=== PATIENT | female | born 1950 | race Caucasian/White ===

== ENCOUNTER 2018-03-06 13:31 | Outpatient (CLI) | payer BC | END 2018-03-06 13:32 | disposition home or self-care (01) | LOC: BICMAMMO 13:31 | PROVIDERS: ATTEND Family Medicine | DX: Z12.31 Encounter for screening mammogram for malignant neoplasm of breast (principal) | CPT/HCPCS: 77063; 77067 ==

== ENCOUNTER 2022-07-09 11:29 | Outpatient (CLI) | payer MEDICARE ==
[~2022-07-09 11:29] MED LIST: Iopamidol 370 76% 100 ML VIAL ONE
== END 2022-07-09 11:30 | disposition home or self-care (01) ==
LOC: CT 11:29
PROVIDERS: ATTEND Internal Medicine Hematology & Oncology
DX: I26.99 Other pulmonary embolism without acute cor pulmonale (principal); C18.2 Malignant neoplasm of ascending colon; D50.8 Other iron deficiency anemias
CPT/HCPCS: 71275; 82565; Q9967

== ENCOUNTER 2022-12-26 09:59 | Outpatient (CLI) | payer MEDICARE, OTHER | END 2022-12-26 10:00 | disposition home or self-care (01) | LOC: DTY/OP 09:59 | PROVIDERS: ATTEND Surgery | DX: E66.01 Morbid (severe) obesity due to excess calories (principal) | CPT/HCPCS: 97802 ==

== ENCOUNTER 2023-02-19 14:00 | Inpatient (IN) | payer MEDICARE ==
[2023-03-05] MEDS ORDERED: Heparin 5,000 UNITS/ML VIAL ONE (06:21)
[2023-03-05] MEDS ORDERED: EPINEPHrine 1 MG/ML AMP ONE (06:37)
[2023-03-05] MEDS ORDERED: Bupivacaine 0.25% HCL 30 ML VIAL ONE (06:37)
[2023-03-05] MEDS ORDERED: Propofol 500 MG/50 ML VIAL ONE (06:56)
[2023-03-05] MEDS ORDERED: fentaNYL PF 100 MCG/2 ML SYRINGE ONE (06:56)
[2023-03-05] MEDS ORDERED: SUGAMMADEX SODIUM 200 MG/2 ML VIAL ONE (06:56)
[2023-03-05] MEDS ORDERED: Ketamine 50 MG/ML (10ML VIAL) ONE (06:56)
[2023-03-05] MEDS ORDERED: CEFAZOLIN 2 GM VIAL ONE (07:29)
[2023-03-05] MEDS ORDERED: Sodium Chloride 0.9% 100 ML ONE (07:29)
[2023-03-05] MEDS ORDERED: Lidocaine 1% PF 5 ML VIAL ONE (07:44)
[2023-03-05] MEDS ORDERED: Rocuronium Bromide 10 MG/ML (10ML VIAL) ONE (07:44)
[2023-03-05] MEDS ORDERED: Dexamethasone 20 MG/5 ML VIAL ONE (07:44)
[2023-03-05] MEDS ORDERED: Ondansetron PF 4 MG/2 ML Vial ONE ×2 (07:44→14:04)
[2023-03-05] MEDS ORDERED: Glycopyrrolate 0.2 MG/ML 5 ML SYRINGE ONE (07:44)
[2023-03-05] MEDS ORDERED: PROPOFOL 200 MG/20 ML VIAL ONE (07:44)
[2023-03-05] MEDS ORDERED: NEOSTIGMINE 3 MG/3 ML SYR 3 MG/3 ML SYRINGE ONE (07:44)
[2023-03-05] MEDS ORDERED: Promethazine HCl 25 MG/ML VIAL IM PRN ×3 (08:21→09:13)
[2023-03-05] MEDS ORDERED: diphenhydrAMINE 50 MG/ML VIAL IM PRN (08:21)
[2023-03-05] MEDS ORDERED: diphenhydrAMINE 50 MG/ML VIAL IVP PRN ×2 (08:21→09:13)
[2023-03-05] MEDS ORDERED: Naloxone HCl 0.4 mg/ml Vial IV PRN (08:21)
[2023-03-05] MEDS ORDERED: Ondansetron HCl/PF 4 MG/2 ML Vial IVP PRN (08:21)
[2023-03-05] MEDS ORDERED: diphenhydrAMINE 25 MG CAP PO PRN (08:21)
[2023-03-05] MEDS ORDERED: FENTANYL 500 MCG/10 ML VIAL 2,000 MCG in Sodium Chloride 0.9% 60 ML IV PRN (08:21)
[2023-03-05] MEDS ORDERED: Communication Order-Pharmacy FS SCH (08:30)
[2023-03-05] MEDS ORDERED: Ondansetron PF 4 MG/2 ML Vial IVP PRN (09:13)
[2023-03-05] MEDS ORDERED: Glucagon 1 MG/ML KIT IM PRN (09:13)
[2023-03-05] MEDS ORDERED: Dextrose 5% in Water 1,000 ML IV PRN (09:13)
[2023-03-05] MEDS ORDERED: Dextrose 50% Abboject 50 ML SYRINGE SLOW IVP PRN (09:13)
[2023-03-05] MEDS ORDERED: Hydrocodone-Acetamin 15 ML UDCUP PO PRN (09:13)
[2023-03-05] MEDS ORDERED: Losartan/Hydrochlorothiazide 100 mg/25 mg Tablet PO SCH (09:13)
[2023-03-05] MEDS ORDERED: Ipratropium/Albuterol 3 ML NEB NEB PRN (09:13)
[2023-03-05] MEDS ORDERED: Promethazine HCl 25 MG/ML VIAL ONE (09:24)
[2023-03-05] MEDS ORDERED: fentaNYL 50 mcg/mL 1 mL Vial ONE (09:27)
[2023-03-05] MEDS ORDERED: D5 1/2 NS w/20 mEq KCL 1,000 ML ONE (10:54)
[2023-03-05] MEDS: D5 1/2 NS w/20 mEq KCL 1,000 ML IV SCH ×2 (11:00→20:56)
[2023-03-05] MEDS ORDERED: hydrALAZINE 20 MG/ML VIAL ONE ×2 (11:01→14:44)
[2023-03-05] MEDS: hydrALAZINE 20 MG/ML VIAL SLOW IVP PRN (11:01)
[2023-03-05] MEDS: Ondansetron PF 4 MG/2 ML Vial IVP PRN ×2 (14:05→18:15)
[2023-03-05 18:01] VITALS: BMI 36.3
[2023-03-05] MEDS: hydrALAZINE 25 MG TAB PO SCH ×2 (20:40→20:55)
[2023-03-05] MEDS: Thyroid 60 MG TAB PO SCH (20:41)
[2023-03-05] MEDS: Pantoprazole 40 MG VIAL IVP SCH (20:41)
[2023-03-06] MEDS: D5 1/2 NS w/20 mEq KCL 1,000 ML IV SCH ×2 (02:15→11:40)
[2023-03-06 06:36] LABS: Calcium 8.7 mg/dL (7.8-10.44); Chloride 103 mmol/L (98-107); Potassium 4.6 mmol/L (3.5-5.1); Sodium 133 mmol/L (136-145)
[2023-03-06 06:37] LABS: Glucose 121 mg/dL (80-115)
[2023-03-06 06:38] LABS: Anion Gap 19 mmol/L (10-20); Carbon Dioxide 16 mmol/L (23-31)
[2023-03-06 06:40] LABS: Calc. Creatinine Clearance 104 mL/min (70-130); Estimated GFR 87
[2023-03-06 06:41] LABS: BUN (Urea Nitrogen) 9 mg/dL (9.8-20.1)
[2023-03-06 06:46] LABS: Hematocrit 43.2 % (36.0-47.0); Hemoglobin 13.1 g/dL (12.0-16.0); Mean Corpuscular HGB CONC 30.3 g/dL (32.0-36.0); Mean Corpuscular Hemoglobin 31.8 pg (27.0-31.0); Mean Corpuscular Volume 104.9 fl (78.0-98.0); Mean Platelet Volume 10.5 fL (7.4-10.4); Platelet Count 239 10x3/uL (130-400); RBC Distribution Width 13.6 % (11.5-14.5); Red Blood Cell (RBC) Count 4.12 mill/uL (4.20-5.40); White Blood Cell (WBC) Count 22.3 10x3/uL (4.8-10.8)
[2023-03-06 07:03] LABS: Delete Auto Diff?? YES; Manual Diff?? YES
[2023-03-06 07:37] VITALS: TEMP 98.2
[2023-03-06 08:11] LABS: Band 10 % (5-11); CellaVision Operator ID LAB.GE; Lymphocytes 4 % (21-51); Macrocytosis SLIGHT = 6-15 cells HPF (0-5); Neutrophil 86 % (42-75); Nucleated RBC (Manual Ct) 2 % (0); Platelet Adequacy Comment Platelets Normal; Polychromasia SLIGHT = 2-3 cells HPF (0-2); Total Cell Count 103
[2023-03-06] MEDS: hydrALAZINE 25 MG TAB PO SCH (10:28)
[2023-03-06] MEDS: Thyroid 60 MG TAB PO SCH (10:28)
[2023-03-06] MEDS: Pantoprazole 40 MG VIAL IVP SCH (10:29)
[2023-03-06] MEDS: Losartan/Hydrochlorothiazide 100 mg/25 mg Tablet PO SCH ×2 (10:29→11:40)
[2023-03-06] MEDS ORDERED: Hydrocodone-Acetamin 15 ML UDCUP PO PRN (11:27)
[2023-03-06] MEDS: Ondansetron PF 4 MG/2 ML Vial IVP PRN (11:29)
[2023-03-06] MEDS: hydrALAZINE 20 MG/ML VIAL SLOW IVP PRN (11:33)
[2023-03-06] MEDS ORDERED: Losartan 25 MG TAB PO SCH (12:45)
[2023-03-06 13:06] VITALS: BP 122/59
[2023-03-07] MEDS ORDERED: Losartan 25 MG TAB PO SCH (09:00)
== END 2023-03-06 14:44 | disposition home or self-care (01) | DRG 621 ==
LOC: SURG A 03-05 06:03
PROVIDERS: ADMIT Surgery; ATTEND Surgery
PROC: 0DB64Z3 Excision of Stomach, Percutaneous Endoscopic Approach, Vertical (ICD-10-PCS; principal; 2023-03-05)
PROC: 8E0W4CZ Robotic Assisted Procedure of Trunk Region, Percutaneous Endoscopic Approach (ICD-10-PCS; 2023-03-05)
DX: E66.01 Morbid (severe) obesity due to excess calories (principal); I10 Essential (primary) hypertension; Z68.36 Body mass index [BMI] 36.0-36.9, adult; Z90.710 Acquired absence of both cervix and uterus; Z98.890 Other specified postprocedural states; Z88.8 Allergy status to other drugs, medicaments and biological substances
CPT/HCPCS: 36415; 80048; 85025; 88307; C9113; J0171; J0360; J1100; J1644; J1650; J2405; J2550; J2704; J3010; J3480; J3490; S0020

== ENCOUNTER 2023-02-19 14:11 | Outpatient (CLI) | payer MEDICARE ==
[2023-02-19 15:48] LABS: #Basophils 0.1 10x3/uL (0.0-0.2); #Eosinphils 0.3 10x3/uL (0.0-0.5); #Monocytes 0.8 10x3/uL (0.0-1.1); #Neutrophils 5.2 10x3/uL (1.5-8.4); %Basophils 0.6 % (0.0-2.0); %Eosinophils 3.1 % (0.0-6.0); %Lymphocytes 33.7 % (18.0-47.0); %Monocytes 8.4 % (0.0-10.0); %Neutrophils 53.9 % (40.0-75.0); Hemoglobin 15.4 g/dL (12.0-15.5); Mean Corpuscular HGB CONC 33.5 g/dL (32.0-36.0); Mean Corpuscular Hemoglobin 31.6 pg (27.0-33.0); Mean Corpuscular Volume 94.3 fl (81.6-98.3); Mean Platelet Volume 9.7 fl (7.4-10.4); Platelet Count 345 10x3/uL (150-450); RBC Distribution Width 13.4 % (11.5-14.5); Red Blood Cell (RBC) Count 4.88 10x6/uL (3.90-5.03); White Blood Cell (WBC) Count 9.7 10x3/uL (3.5-10.5)
[2023-02-19 16:15] LABS: ALT (SGPT) 48 U/L (8-55); AST (SGOT) 47 U/L (5-34); Albumin 4.6 g/dL (3.4-4.8); Alkaline Phosphatase 63 U/L (40-110); Anion Gap 15 mmol/L (10-20); BUN (Urea Nitrogen) 29 mg/dL (9.8-20.1); Bilirubin, Total 0.3 mg/dL (0.2-1.2); Calc. Creatinine Clearance 0 mL/min (70-130); Calcium 10.2 mg/dL (7.8-10.44); Carbon Dioxide 26 mmol/L (23-31); Chloride 99 mmol/L (98-107); Estimated GFR 75; Globulin 2.6 g/dL (2.4-3.5); Glucose 87 mg/dL (80-115); Potassium 3.9 mmol/L (3.5-5.1); Protein, Total 7.2 g/dL (5.8-8.1); Sodium 136 mmol/L (136-145)
[2023-02-19 20:02] LABS: Hemoglobin A1c 5.1 % (4.0-6.0)
== END 2023-02-19 14:12 | disposition home or self-care (01) ==
LOC: LABBT 14:11
PROVIDERS: ATTEND Surgery
DX: Z01.818 Encounter for other preprocedural examination (principal); E66.01 Morbid (severe) obesity due to excess calories
CPT/HCPCS: 71046; 80053; 83036; 85025; 93005; 93010

== ENCOUNTER 2023-05-10 13:30 | Inpatient (IN) | payer MEDICARE ==
[2023-05-10 15:00] LABS: Anion Gap 18 mmol/L (10-20); BUN (Urea Nitrogen) 13 mg/dL (9.8-20.1); Calc. Creatinine Clearance 0 mL/min (70-130); Calcium 9.6 mg/dL (7.8-10.44); Carbon Dioxide 23 mmol/L (23-31); Chloride 101 mmol/L (98-107); Estimated GFR 76; Glucose 93 mg/dL (80-115); Potassium 4.1 mmol/L (3.5-5.1); Sodium 138 mmol/L (136-145)
[2023-05-10 15:03] LABS: Hematocrit 45.5 % (34.9-44.5); Hemoglobin 15.4 g/dL (12.0-15.5); Mean Corpuscular HGB CONC 33.8 g/dL (32.0-36.0); Mean Corpuscular Hemoglobin 30.9 pg (27.0-33.0); Mean Corpuscular Volume 91.2 fl (81.6-98.3); Platelet Count 245 10x3/uL (150-450); Red Blood Cell (RBC) Count 4.99 10x6/uL (3.90-5.03); White Blood Cell (WBC) Count 8.5 10x3/uL (3.5-10.5)
[2023-05-13] MEDS ORDERED: Rocuronium Bromide 10 MG/ML (10ML VIAL) ONE ×2 (06:15→06:26)
[2023-05-13] MEDS ORDERED: Ondansetron PF 4 MG/2 ML Vial ONE ×2 (06:15→08:50)
[2023-05-13] MEDS ORDERED: PROPOFOL 200 MG/20 ML VIAL ONE (06:15)
[2023-05-13] MEDS ORDERED: ePHEDrine Sulfate 50 MG/10 ML VIAL ONE ×2 (06:15→08:27)
[2023-05-13] MEDS ORDERED: Lidocaine 1.5% w/Epi 1:200K 30 ML VIAL (Epid Use) ONE (06:15)
[2023-05-13] MEDS ORDERED: Labetalol HCl 100 MG/20 ML VIAL ONE ×2 (06:15→08:48)
[2023-05-13] MEDS ORDERED: Dexamethasone 20 MG/5 ML VIAL ONE ×2 (06:15→08:25)
[2023-05-13] MEDS ORDERED: diphenhydrAMINE 50 MG/ML VIAL ONE ×2 (06:15→08:52)
[2023-05-13] MEDS ORDERED: PROPOFOL 20 ML ONE (06:26)
[2023-05-13] MEDS ORDERED: fentaNYL 50 mcg/mL 1 mL Vial ONE ×6 (06:29→12:10)
[2023-05-13] MEDS ORDERED: Midazolam HCl 2 mg/2 ml Vial ONE (06:29)
[2023-05-13] MEDS ORDERED: CEFAZOLIN 2 GM VIAL ONE (07:22)
[2023-05-13] MEDS ORDERED: Sodium Chloride 0.9% 100 ML ONE (07:23)
[2023-05-13] MEDS ORDERED: fentaNYL PF 100 MCG/2 ML SYRINGE ONE (07:39)
[2023-05-13] MEDS ORDERED: HYDROcodone/Acetaminophen 5/325 mg Tablet PO PRN ×2 (07:45)
[2023-05-13] MEDS ORDERED: Promethazine HCl 25 MG SUPP PR PRN (07:45)
[2023-05-13] MEDS ORDERED: Moisturizing Cream (Eucerin) 113 GM JAR TOP PRN (07:45)
[2023-05-13] MEDS ORDERED: Naloxone HCl 0.4 mg/ml Vial IV PRN (07:45)
[2023-05-13] MEDS ORDERED: diphenhydrAMINE 25 MG CAP PO PRN (07:45)
[2023-05-13] MEDS ORDERED: traMADol HCl 50 MG TAB PO PRN ×2 (07:45)
[2023-05-13] MEDS ORDERED: diphenhydrAMINE 50 MG/ML VIAL IVP PRN (07:45)
[2023-05-13] MEDS ORDERED: Naloxone HCl 0.4 mg/ml Vial IVP PRN (07:45)
[2023-05-13] MEDS ORDERED: Promethazine HCl 25 MG/ML VIAL IM PRN (07:45)
[2023-05-13] MEDS ORDERED: Bupivacaine 0.25% 10 ML VIAL EPIDURAL PRN (07:45)
[2023-05-13] MEDS ORDERED: diphenhydrAMINE 50 MG/ML VIAL IM PRN (07:45)
[2023-05-13] MEDS ORDERED: Ropivacaine 0.2% HCl/PF 20 ML ONE (07:55)
[2023-05-13] MEDS ORDERED: SUGAMMADEX SODIUM 200 MG/2 ML VIAL ONE (08:59)
[2023-05-13] MEDS ORDERED: hydrALAZINE 20 MG/ML VIAL SLOW IVP PRN (09:24)
[2023-05-13] MEDS ORDERED: Ondansetron HCl/PF 4 MG/2 ML Vial IVP PRN (09:37)
[2023-05-13 12:47] VITALS: BMI 32.0
[2023-05-13] MEDS: CEFAZOLIN 2 GM in Sodium Chloride 0.9% 100 ML IVPB SCH ×2 (15:08→22:58)
[2023-05-13] MEDS: Sodium Chloride 0.9% 1,000 ML IV SCH ×2 (17:23→19:33)
[2023-05-13] MEDS: Ketorolac Tromethamine 30 MG/ML VIAL IVP SCH ×3 (17:24→22:59)
[2023-05-13] MEDS ORDERED: FLU VACC QS2023(65UP)/MF59C/PF 60 MCG/0.5 ML SYRINGE IM ONE (18:00)
[2023-05-13] MEDS: Ondansetron PF 4 MG/2 ML Vial IVP PRN (19:30)
[2023-05-13] MEDS: Atorvastatin Calcium 20 MG TAB PO SCH (19:33)
[2023-05-13] MEDS: Progesterone,Micronized 100 MG CAP PO SCH (19:36)
[2023-05-14] MEDS: Fentanyl/Bupivacaine 100 ML EPIDURAL SCH ×2 (02:33→19:29)
[2023-05-14 05:00] LABS: #Monocytes 0.9 thou/uL (0.11-0.59); #Neutrophils 12.9 thou/uL (1.40-6.50); %Basophils 0.1 % (0.0-1.0); %Monocytes 5.6 % (0.0-10.0); %Neutrophils 84.8 % (42.0-75.0); Hematocrit 38.5 % (36.0-47.0); Mean Corpuscular HGB CONC 33.8 g/dL (32.0-36.0); Mean Corpuscular Hemoglobin 31.2 pg (27.0-31.0); Mean Corpuscular Volume 92.3 fl (78.0-98.0); Mean Platelet Volume 10.5 fL (7.4-10.4); Platelet Count 185 10x3/uL (130-400); RBC Distribution Width 15.3 % (11.5-14.5); Red Blood Cell (RBC) Count 4.17 mill/uL (4.20-5.40); White Blood Cell (WBC) Count 15.2 10x3/uL (4.8-10.8)
[2023-05-14 05:21] LABS: Anion Gap 12 mmol/L (10-20); BUN (Urea Nitrogen) 11 mg/dL (9.8-20.1); Calc. Creatinine Clearance 81 mL/min (70-130); Calcium 7.9 mg/dL (7.8-10.44); Carbon Dioxide 26 mmol/L (23-31); Chloride 99 mmol/L (98-107); Estimated GFR 75; Glucose 137 mg/dL (80-115); Potassium 3.7 mmol/L (3.5-5.1); Sodium 133 mmol/L (136-145)
[2023-05-14] MEDS: Ketorolac Tromethamine 30 MG/ML VIAL IVP SCH ×3 (06:02→18:40)
[2023-05-14] MEDS: CEFAZOLIN 2 GM in Sodium Chloride 0.9% 100 ML IVPB SCH (06:02)
[2023-05-14] MEDS: Sodium Chloride 0.9% 1,000 ML IV SCH ×2 (06:03→15:30)
[2023-05-14] MEDS ORDERED: Milk Of Magnesia 30 ML UDCUP PO PRN (08:12)
[2023-05-14] MEDS ORDERED: Mineral Oil ENEMA PR PRN (08:12)
[2023-05-14] MEDS ORDERED: Bisacodyl 10 MG SUPP PR PRN (08:12)
[2023-05-14] MEDS ORDERED: Thyroid 60 MG TAB PO SCH (09:00)
[2023-05-14] MEDS ORDERED: TURMERIC ROOT EXTRACT 500 MG PO SCH (09:00)
[2023-05-14] MEDS: CO Q-10 CAPSULE 100 MG PO SCH (09:56)
[2023-05-14] MEDS: Calcium Carbonate 500 MG TAB PO SCH (09:57)
[2023-05-14] MEDS: DULoxetine 30 MG CAP PO SCH (09:57)
[2023-05-14] MEDS: Multivitamin W/ Minerals 1 TAB PO SCH (09:57)
[2023-05-14] MEDS: Ondansetron PF 4 MG/2 ML Vial IVP PRN ×2 (11:51→18:36)
[2023-05-14] MEDS: Zolpidem Tartrate 5 MG TAB PO PRN (21:16)
[2023-05-14] MEDS: Atorvastatin Calcium 20 MG TAB PO SCH (21:16)
[2023-05-14] MEDS: Progesterone,Micronized 100 MG CAP PO SCH (21:33)
[2023-05-15] MEDS: Sodium Chloride 0.9% 1,000 ML IV SCH ×3 (01:30→22:41)
[2023-05-15] MEDS: Ketorolac Tromethamine 30 MG/ML VIAL IVP SCH ×2 (06:09)
[2023-05-15] MEDS: Thyroid 60 MG TAB PO SCH (06:09)
[2023-05-15] MEDS: DULoxetine 30 MG CAP PO SCH (09:16)
[2023-05-15] MEDS: Calcium Carbonate 500 MG TAB PO SCH (09:17)
[2023-05-15] MEDS: Multivitamin W/ Minerals 1 TAB PO SCH (09:17)
[2023-05-15] MEDS: CO Q-10 CAPSULE 100 MG PO SCH (09:17)
[2023-05-15] MEDS: HYDROcodone/Acetaminophen 10/325 mg Tablet PO PRN ×3 (11:27→22:41)
[2023-05-15] MEDS ORDERED: guaiFENesin ER 600 MG TAB PO PRN (15:18)
[2023-05-15] MEDS: Zolpidem Tartrate 5 MG TAB PO PRN (21:00)
[2023-05-15] MEDS: Atorvastatin Calcium 20 MG TAB PO SCH (21:00)
[2023-05-15] MEDS: Progesterone,Micronized 100 MG CAP PO SCH (21:00)
[2023-05-15] MEDS: Ipratropium/Albuterol 3 ML NEB NEB PRN (23:23)
[2023-05-16] MEDS: HYDROcodone/Acetaminophen 10/325 mg Tablet PO PRN ×2 (02:55→07:08)
[2023-05-16] MEDS: Thyroid 60 MG TAB PO SCH (06:14)
[2023-05-16] MEDS: Ipratropium/Albuterol 3 ML NEB NEB PRN (06:14)
[2023-05-16 08:09] VITALS: BP 121/59; TEMP 97.6
[2023-05-16] MEDS: Sodium Chloride 0.9% 1,000 ML IV SCH (08:09)
[2023-05-16] MEDS: Calcium Carbonate 500 MG TAB PO SCH (08:42)
[2023-05-16] MEDS: CO Q-10 CAPSULE 100 MG PO SCH (08:42)
[2023-05-16] MEDS: DULoxetine 30 MG CAP PO SCH (08:42)
[2023-05-16] MEDS: Multivitamin W/ Minerals 1 TAB PO SCH (08:42)
== END 2023-05-16 09:43 | disposition home or self-care (01) | DRG 164 ==
LOC: SURG A 05-13 06:08 → CCU 05-13 12:31 → 2NO 05-14 20:26
PROVIDERS: ADMIT Thoracic Surgery (Cardiothoracic Vascular Surgery); ATTEND Thoracic Surgery (Cardiothoracic Vascular Surgery)
PROC: 0BTD0ZZ Resection of Right Middle Lung Lobe, Open Approach (ICD-10-PCS; principal; 2023-05-13)
DX: C78.01 Secondary malignant neoplasm of right lung (principal); C18.9 Malignant neoplasm of colon, unspecified; I10 Essential (primary) hypertension; Z90.710 Acquired absence of both cervix and uterus; Z98.890 Other specified postprocedural states; Z82.49 Family history of ischemic heart disease and other diseases of the circulatory system
CPT/HCPCS: 71045; 80048; 85025; 85027; 86850; 86900; 86901; 88309; 88331; 88341; 88342; 94640; A4649; C1729; C1751; J1100; J1200; J1885; J2001; J2250; J2405; J2704; J2795; J3010; J3490; J7050; J7620

== ENCOUNTER 2023-05-23 12:32 | Outpatient (CLI) | payer MEDICARE | END 2023-05-23 12:33 | disposition home or self-care (01) | LOC: BICCT 12:32 | PROVIDERS: ATTEND Internal Medicine | DX: R91.1 Solitary pulmonary nodule (principal); J90 Pleural effusion, not elsewhere classified; Z90.2 Acquired absence of lung [part of] | CPT/HCPCS: 71250 ==

== ENCOUNTER 2023-06-05 14:52 | Outpatient (CLI) | payer MEDICARE | END 2023-06-05 14:53 | disposition home or self-care (01) | LOC: RAD 14:52 | PROVIDERS: ATTEND Thoracic Surgery (Cardiothoracic Vascular Surgery) | DX: R91.1 Solitary pulmonary nodule (principal); J90 Pleural effusion, not elsewhere classified | CPT/HCPCS: 71046 ==

== ENCOUNTER 2023-08-29 08:45 | Outpatient (CLI) | payer MEDICARE | END 2023-08-29 08:46 | LOC: PET 08:45 | PROVIDERS: ATTEND Internal Medicine Hematology & Oncology | DX: C18.2 Malignant neoplasm of ascending colon (principal); C78.01 Secondary malignant neoplasm of right lung; J90 Pleural effusion, not elsewhere classified | CPT/HCPCS: 78815; A9552 ==

== ENCOUNTER 2023-11-22 07:57 | Outpatient (CLI) | payer MEDICARE ==
[2023-11-22] MEDS ORDERED: Iopamidol 370 76% 100 ML VIAL ONE (12:33)
== END 2023-11-22 07:58 | disposition home or self-care (01) ==
LOC: CT 07:57
PROVIDERS: ATTEND Internal Medicine Hematology & Oncology
DX: C18.9 Malignant neoplasm of colon, unspecified (principal); C78.01 Secondary malignant neoplasm of right lung; R51.9 Headache, unspecified
CPT/HCPCS: 70470; 82565; Q9967

== ENCOUNTER 2024-06-04 10:15 | Outpatient (CLI) | payer MEDICARE | END 2024-06-04 10:16 | disposition home or self-care (01) | LOC: PET 10:15 | PROVIDERS: ATTEND Internal Medicine Hematology & Oncology | DX: C18.2 Malignant neoplasm of ascending colon (principal); C78.01 Secondary malignant neoplasm of right lung; J90 Pleural effusion, not elsewhere classified | CPT/HCPCS: 78815; A9552 ==

== ENCOUNTER 2025-05-28 10:15 | Outpatient (CLI) | payer MEDICARE | END 2025-05-28 10:16 | disposition home or self-care (01) | LOC: PET 10:15 | PROVIDERS: ATTEND Internal Medicine Hematology & Oncology | DX: C18.2 Malignant neoplasm of ascending colon (principal); C78.01 Secondary malignant neoplasm of right lung; D50.8 Other iron deficiency anemias | CPT/HCPCS: 78815; A9552 ==